=== PATIENT | male | born 1970 | race Caucasian/White ===

== ENCOUNTER 2020-01-22 14:58 | Emergency (ER) | payer MEDICAID ==
[~2020-01-22] VITALS: Ht 177.8 cm; Wt 125.8 kg
[2020-01-22 15:07] VITALS: BP 153/78
== END 2020-01-22 15:48 | disposition home or self-care (01) ==
LOC: ER 14:59
DX: K42.9 Umbilical hernia without obstruction or gangrene (principal)
CPT/HCPCS: 99281

== ENCOUNTER 2020-04-11 16:26 | Emergency (ER) | payer MEDICAID ==
[~2020-04-11] VITALS: Ht 177.8 cm; Wt 127.3 kg
[2020-04-11 16:36] VITALS: BP 171/98
[2020-04-11] MEDS ORDERED: TETanus/Pertussis (Acell)/Diphther VAC/PF (Tdap-Adult) 0.5ml syringe IMVAC ONE (17:05)
[2020-04-11] MEDS ORDERED: LIDOcaine 1% W/epiNEPHrine 1:200,000 10ml vial IJ ONE (17:05)
== END 2020-04-11 18:30 | disposition home or self-care (01) ==
LOC: ER 16:27
DX: S89.91XA Unspecified injury of right lower leg, initial encounter (principal); X58.XXXA Exposure to other specified factors, initial encounter; Y93.89 Activity, other specified; Y92.89 Other specified places as the place of occurrence of the external cause; Y99.8 Other external cause status
CPT/HCPCS: 90471; 90715; 99283; 99284

== ENCOUNTER 2020-12-02 23:27 | Emergency (ER) | payer MEDICAID ==
[~2020-12-02] VITALS: Ht 177.8 cm; Wt 145.4 kg
[2020-12-03] MEDS ORDERED: cloNIDine 0.1 mg tablet PO ONE (00:20)
[2020-12-03] MEDS ORDERED: VALA100031 PO (00:23)
[2020-12-03] MEDS ORDERED: PRED20TA PO (00:23)
[2020-12-03] MEDS ORDERED: PROP10DR5 OP (00:44)
[2020-12-03 01:25] VITALS: BP 165/97
== END 2020-12-03 01:28 | disposition home or self-care (01) ==
LOC: ER 23:29
DX: I10 Essential (primary) hypertension (principal); G51.0 Bell's palsy; M54.2 Cervicalgia; Z79.899 Other long term (current) drug therapy; Z79.2 Long term (current) use of antibiotics
CPT/HCPCS: 93005; 99283